=== PATIENT | female | born 1950 | race Caucasian/White ===

== ENCOUNTER → 2017-03-03 | Day surgery (SDC) | payer BC ==
[~2017-03-03] MED LIST: ACETAMINOPHEN 500 MG TAB PO PRN; BUPIVACAINE 0.5% 30 ML SDV ONE; CEFAZOLIN 1 GM/DEXTROSE/50 ML BAG IV ONE; DEXAMETHASONE 4 MG/ML VIAL IVP PRN; HYDROCODONE/APAP 5/325 TAB ONE; HYDROmorphONE/DILAUDID 1 MG/ML SYR IVP ONE; MIDAZOLAM 2 MG/2 ML VIAL IVP ONE; MIDAZOLAM 2 MG/2 ML VIAL ONE; NALOXONE HCL 0.4 MG/ML INJ IVP PRN; ONDANSETRON 4 MG/2 ML VIAL IVP PRN; OXYCODONE/APAP 5/325 TAB PO PRN; PROMETHAZINE HCL 25 MG/ML INJ IVP PRN; PROPOFOL 200 MG/20 ML VIAL ONE; PROPOFOL/EMULSION 500 MG/50 ML BOTTLE IV ONE; SUGAMMADEX SODIUM 200 MG/2 ML VIAL IVP ONE; ceFAZolin 2 GM/DEXTROSE 100 ML IV ONE; fentaNYL 100 MCG/2 ML INJ IVP PRN; fentaNYL 100 MCG/2 ML INJ ONE; oxyCODONE IR 5 MG TAB PO SCH
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
[2017-03-03 14:11] LABS: % IMMATURE GRANULYOCYTES 0.4 % (0.0-1.1); ABSOLUTE IMMATURE GRANULOCYTES 0.03 10^3/uL (0.00-0.10); ADD DIFF? NO; ADD MORPH? NO; ADD SCAN? NO; ATYPICAL LYMPHOCYTE FLAG 0 (0-99); FRAGMENT RBC FLAG 0 (0-99); HEMATOCRIT 35.9 % (38.0-47.0); HEMOGLOBIN 11.9 g/dL (12.6-16.3); LEFT SHIFT FLG 0 (0-99); LIPEMIA HEMOLYSIS FLAG 80 (0-99); MEAN CELL HEMOGLOBIN 30.4 pg (27.9-34.1); MEAN CELL HEMOGLOBIN CONCENTR. 33.1 g/dL (32.4-36.7); MEAN CELL VOLUME 91.6 fL (81.5-99.8); MEAN PLATELET VOLUME 10.3 fL (8.7-11.7); PLATELET CLUMPS FLAG 10 (0-99); PLATELET COUNT 292 10^3/uL (150-400); RED BLOOD CELL COUNT 3.92 10^6/uL (4.18-5.33)
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
[2017-03-03 14:31] LABS: ANION GAP 9 mEq/L (8-16); CARBON DIOXIDE 24 mEq/l (22-31); CHLORIDE 100 mEq/L (97-110); CREATININE 0.6 mg/dL (0.6-1.0); GLOMERULAR FILTRATION RATE > 60; GLUCOSE 161 mg/dL (70-100); POTASSIUM 4.3 mEq/L (3.5-5.2); SODIUM 133 mEq/L (134-144)
--- NOTE | 2017-03-03 16:11 | POSTOPPROG ---
Post Op Note Date of Operation: 03/03/17 Surgeon: Alejandro Tovar Anesthesia: GET(General Endotracheal) Pre-op Diagnosis: L distal radius fracture, open ulnar dislocation Post-op Diagnosis: same + ecu RETINACULAR TEAR Procedure: ORIF L radius, ulnar carpal ligament reconstruction, ECU retinacular repair Inf/Abcess present in the surg proc area at time of surgery?: No EBL: Minimal
[2017-03-03] MEDS: HYDROCODONE/APAP 5/325 TAB PO PRN ×2 (16:38→16:58)
[2017-03-03 16:57] VITALS: PULSE 79
[2017-03-03 17:02] VITALS: RESP 11
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
[2017-03-03 17:29] VITALS: TEMP 97.7; O2SAT 92
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
[2017-03-03 18:08] VITALS: BP 114/59
--- NOTE | 2017-03-03 18:57 | POSTANESTH ---
Post Anesthetic Evaluation Cardiovascular Status: Normal, Stable Respiratory Status: Normal, Stable Level of Consciousness/Mental Status: Can Participate in Eval Pain Control: Adequate, Prn Tx Ordered Nausea/Vomiting Control: Adequate, Prn Tx Ordered Complications Possibly Related to Anesthesia: None Noted
== END | disposition home or self-care (01) ==
LOC: UNDOADMOB 13:34 → FSGY 13:34
PROVIDERS: ATTEND Orthopaedic Surgery Foot and Ankle Surgery
PROC: 0PSJ04Z Reposition Left Radius with Internal Fixation Device, Open Approach (ICD-10-PCS; principal; 2017-03-03 13:27)
PROC: 0PHJ04Z Insertion of Internal Fixation Device into Left Radius, Open Approach (ICD-10-PCS; principal; 2017-03-03 13:27)
PROC: 0MQ60ZZ Repair Left Wrist Bursa and Ligament, Open Approach (ICD-10-PCS; principal; 2017-03-03 13:27)
DX: S52.502B Unspecified fracture of the lower end of left radius, initial encounter for open fracture type I or II (principal); S63.075A Dislocation of distal end of left ulna, initial encounter; S66.892A Other injury of other specified muscles, fascia and tendons at wrist and hand level, left hand, initial encounter; V18.0XXA Pedal cycle driver injured in noncollision transport accident in nontraffic accident, initial encounter; Y93.55 Activity, bike riding
CPT/HCPCS: 25320; 25608; 73110; 96365; 96375; 99285; C1769; C1713; J0690; J1170; J2250; J2704; J3010